=== PATIENT | female | born 1960 | race Caucasian/White ===

== ENCOUNTER 2019-03-25 08:19 | Day surgery (SDC) | payer BC ==
[~2019-03-25 08:19] MED LIST: Lactated Ringers 1,000 ML IV SCH; Lidocaine 1%/Sod Bicarbonate in NS 8.4% 1 ML Syringe IDERM PRN; Ondansetron 4 MG/2 ML SDV ONE; Propofol 200 MG/20 ML SDV ONE; Sodium Chloride 0.9% 10 ML Syringe FLUSH PRN; fentaNYL 100 MCG/2 ML SDV ONE
[2019-03-25] MEDS ORDERED: Propofol 200 MG/20 ML SDV ONE ×2 (09:31→10:19)
[2019-03-25] MEDS ORDERED: Glycopyrrolate 0.2 MG/ML SDV ONE (09:49)
[2019-03-25] MEDS ORDERED: Lidocaine 1% 4 ML ONE (10:01)
--- NOTE | 2019-03-25 10:37 | PCM.PREANE ---
Preanesthetic Assessment - Anesthesia/Transfusion/Family Hx Anesthesia History: Prior Anesthesia Without Reaction Family History of Anesthesia Reaction: No - Review of Systems General: No Symptoms Pulmonary: No Symptoms (Occasional Smoker.) Cardiovascular: No Symptoms Gastrointestinal: No Symptoms Neurological: Headache Other: Reports: Depression - Physical Assessment NPO Status Date: 03/24/19 NPO Status Time: 22:00 O2 Sat by Pulse Oximetry: 98 Respiratory Rate: 16 Vital Signs: Last Vital Signs Temp 36.7 C 03/25/19 08:25 Pulse 53 L 03/25/19 08:25 Resp 16 03/25/19 08:25 BP 115/57 L 03/25/19 08:25 Pulse Ox 98 03/25/19 08:25 Height: 1.57 m Weight: 62.9 kg ASA Class: 2 Mental Status: Alert & Oriented x3 Airway Class: Mallampati = 2 Dentition: Reports: Normal Dentition Thyro-Mental Finger Breadths: 2 Mouth Opening Finger Breadths: 3 ROM/Head Extension: Full Lungs: Clear to Auscultation, Normal Respiratory Effort Cardiovascular: Regular Rate, Regular Rhythm - Lab Values: Laboratory Last Values Creatinine 1.1 mg/dL (0.55-1.02) H 03/25/19 08:38 Est Cr Clr Drug Dosing 44.63 mL/min 03/25/19 08:38 Estimated GFR (MDRD) 51 mL/min (>60) 03/25/19 08:38 - Allergies Allergies/Adverse Reactions: Allergies Allergy/AdvReac Type Severity Reaction Status Date / Time No Known Allergies Allergy Verified 03/25/19 09:03 - Acknowledgements Anesthesia Type Planned: MAC Pt an Appropriate Candidate for the Planned Anesthesia: Yes Alternatives and Risks of Anesthesia Discussed w Pt/Guardian: Yes Pt/Guardian Understands and Agrees with Anesthesia Plan: Yes PreAnesthesia Questionnaire HEENT History: Reports: Impaired Vision, Other (See Below) Other HEENT History: wears glasses Cardiovascular History: Reports: None Respiratory History: Reports: None Gastrointestinal History: Reports: None Genitourinary History: Reports: Other (See Below) Other Genitourinary History: elevated serum creatinine Musculoskeletal History: Reports: None Neurological History: Reports: None Psychiatric History: Reports: None Endocrine/Metabolic History: Reports: None Hematologic History: Reports: None Immunologic History: Reports: None Oncologic (Cancer) History: Reports: None Dermatologic History: Reports: None - Past Surgical History Head Surgeries/Procedures: Reports: None HEENT Surgical History: Reports: Oral Surgery Cardiovascular Surgical History: Reports: None Respiratory Surgical History: Reports: None GI Surgical History: Reports: Colonoscopy Female Surgical History: Reports: Section, Tubal Ligation Male Surgical History: Reports: None Endocrine Surgical History: Reports: None Neurological Surgical History: Reports: None Musculoskeletal Surgical History: Reports: None Oncologic Surgical History: Reports: None Dermatological Surgical History: Reports: None - SUBSTANCE USE Smoking Status *Q: Current Every Day Smoker Recreational Drug Use History: No - HOME MEDS Home Medications: Home Meds Acetaminophen [Tylenol] 650 mg PO Q4H PRN 03/24/19 [History] Cholecalciferol (Vitamin D3) [Vitamin D3] 10,000 unit PO Q72H 03/24/19 [History] - CURRENT (IN HOUSE) MEDS Current Meds: Current Medications Lactated Ringer's (Ringers, Lactated) 1,000 mls @ 125 mls/hr IV ASDIRECTED DION Stop: 03/25/19 23:00 Last Admin: 03/25/19 08:50 Dose: 125 mls/hr Lidocaine/Sodium Bicarbonate (Buffered Lidocaine 1% In Ns 8.4%) 0.25 ml IDERM ONETIME PRN PRN Reason: Prior to IV Start Stop: 03/25/19 18:00 Last Admin: 03/25/19 08:50 Dose: 0.25 ml Sodium Chloride (Saline Flush) 10 ml FLUSH ASDIRECTED PRN PRN Reason: Keep Vein Open Stop: 03/25/19 18:00 Discontinued Medications Fentanyl (Sublimaze) Confirm Administered Dose 100 mcg .ROUTE .STK-MED ONE Stop: 03/25/19 07:12 Glycopyrrolate (Robinul) Confirm Administered Dose 0.2 mg .ROUTE .STK-MED ONE Stop: 03/25/19 09:50 Lidocaine HCl (Xylocaine-Mpf 1%) Confirm Administered Dose 4 mls @ as directed .ROUTE .STK-MED ONE Stop: 03/25/19 10:02 Ondansetron HCl (Zofran) Confirm Administered Dose 4 mg .ROUTE .STK-MED ONE Stop: 03/25/19 08:10 Propofol (Diprivan 20 Ml) Confirm Administered Dose 200 mg .ROUTE .STK-MED ONE Stop: 03/25/19 07:12 Propofol (Diprivan 20 Ml) Confirm Administered Dose 200 mg .ROUTE .STK-MED ONE Stop: 03/25/19 09:32 Propofol (Diprivan 20 Ml) Confirm Administered Dose 200 mg .ROUTE .STK-MED ONE Stop: 03/25/19 10:20
--- NOTE | 2019-03-25 11:03 | PCM.OPNOTE ---
- General Post-Op/Procedure Note Date of Surgery/Procedure: 03/25/19 Operative Procedure(s): colonoscopy Findings: 1. Ascending colon polyp 2. Transverse colon polyp 3. Sigmoid colon polyp 4. Rectal polyp x2 Pre Op Diagnosis: family history of colon cancer in a first degree relative Post-Op Diagnosis: same Anesthesia Technique: MAC Primary Surgeon: Tyra Don Anesthesia Provider: Hellen Benton Pathology: 1. Ascending colon polyp 2. Transverse colon polyp 3. Sigmoid colon polyp 4. Rectal polyp x 2 Fluid Replacement, Intraop: 1,400 Output, Urine Amount: 0 EBL in mLs: 0 Complications: none apparent Condition: Good
--- NOTE | 2019-03-25 11:04 | PCM48HPAN ---
Post Anesthesia Note - EVALUATION WITHIN 48HRS OF ANESTHETIC Vital Signs in Normal Range: Yes Patient Participated in Evaluation: Yes Respiratory Function Stable: Yes Airway Patent: Yes Cardiovascular Function Stable: Yes Hydration Status Stable: Yes Pain Control Satisfactory: Yes Nausea and Vomiting Control Satisfactory: Yes Mental Status Recovered: Yes Pulse Rate: 75 SaO2: 97 Resp Rate: 12 Temperature: 36.4 C Blood Pressure: 107/59
--- NOTE | 2019-03-25 11:05 | PCM.PRNOTE ---
- Free Text/Narrative Note: Operative Report Date of Surgery/Procedure: March 25, 2019 Operative Procedure: Colonoscopy to cecum Pre Op Diagnosis: high risk colorectal cancer screening, colon cancer in first degree relative Post-Op Diagnosis: same Surgeon: Tyra Don MD Anesthesia Technique: MAC Anesthesia Provider: Hellen Benton CRNA IV Fluid Replacement, Intraop: 1400cc Output, Urine Amount: 0 cc EBL : 0 cc Findings: 1. Ascending colon polyp 2. Transverse colon polyp 3. Sigmoid colon polyp 4. Rectal polyp x2 Specimens: 1. Ascending colon polyp 2. Transverse colon polyp 3. Sigmoid colon polyp 4. Rectal polyp x2 Indication: The patient is a 58year-old lady who presented to the outpatient clinic requesting high risk colorectal cancer screening. The patient has a history of colon cancer in her father We discussed the procedure of a colonoscopy including the polypectomy and biopsy. Risks of bleeding and perforation were discussed, the patient understood and wished to proceed. Written and consent was obtained. Description of the procedure: The patient was brought to the endoscopy suite and placed in the left lateral decubitus position. Appropriate monitors were applied. The patient was given MAC anesthesia. An anorectal examination was performed, revealing no significant abnormality. The scope was placed into the rectum and advanced to cecum with some difficulty requiring abdominal pressure. The patients cecum was entered, and the ileocecal valve and appendiceal orifice were identified and normal. At this point, the scope was withdrawn, paying careful attention to the mucosa. The patient had good bowel prep, allowing for visualization of 90-95 % of the mucosa. Several colon polyps were noted. A 1.3 cm sessile polyp was found in the ascending colon. This is removed in piecemeal fashion using a jumbo cold biopsy forceps. A 4 mm sessile polyp was noted in the transverse colon which was also removed using jumbo cold biopsy forceps. A 4 mm semi- sessile polyp was noted in the sigmoid colon which was removed using jumbo cold biopsy forceps. In the rectum, 2 flat polyps measuring 2-3 mm were removed using jumbo cold biopsy forceps. The scope was retroflexed and no abnormalities were noted, except for some hemorrhoidal tissue. The scope was placed back in the lumen and the excess air was aspirated. The patient tolerated the procedure well. Complications: none apparent Condition: Good, transported to PACU in stable condition Tyra Don MD General Surgery
== END 2019-03-25 11:30 | disposition home or self-care (01) ==
LOC: JD.SDS 08:19
PROVIDERS: ATTEND Surgery
DX: Z12.11 Encounter for screening for malignant neoplasm of colon (principal); D12.2 Benign neoplasm of ascending colon; K63.5 Polyp of colon; K62.1 Rectal polyp; K64.9 Unspecified hemorrhoids; Z80.0 Family history of malignant neoplasm of digestive organs; F17.210 Nicotine dependence, cigarettes, uncomplicated; F32.9 Major depressive disorder, single episode, unspecified; Z79.899 Other long term (current) drug therapy
CPT/HCPCS: 36415; 45380; 82565; J2001; J2405; J2704; J3490; J7120; 00812; J3010